=== PATIENT | female | born 1945 | race Caucasian/White ===

== ENCOUNTER 2019-09-13 07:03 | Day surgery (SDC) | payer MEDICARE, BC ==
[2019-09-07 11:41] LABS: BASOPHILS % (AUTO) 0.3 % (0-1); EOSINOPHILS # (AUTO) 0.1 X10'3 (0-0.9); EOSINOPHILS % (AUTO) 0.7 % (0-6); LYMPHOCYTES # (AUTO) 1.8 X10'3 (1.1-4.8); LYMPHOCYTES % (AUTO) 21.4 % (21-51); MEAN CORPUSCULAR HEMOGLOBIN 28.6 PG (27.0-31.0); MEAN CORPUSCULAR VOLUME 86.5 FL (78-98); MEAN PLATELET VOLUME 8.1 FL (7.4-10.4); MONOCYTES # (AUTO) 0.7 X10'3 (0-0.9); MONOCYTES % (AUTO) 8.3 % (2-12); NEUTROPHILS # (AUTO) 5.8 X10'3 (1.8-7.7); NEUTROPHILS % (AUTO) 69.3 % (42-75); PRE OP HEMATOCRIT 35.6 % (35.0-45.0); PRE OP HEMOGLOBIN 11.8 g/dL (12.0-16.0); PRE OP PLATELET COUNT 342 X10'3 (140-440); RED BLOOD COUNT 4.12 X10'6 (4.20-5.60); RED CELL DISTRIBUTION WIDTH 17.9 % (11.5-14.5)
[2019-09-07 11:55] LABS: ALBUMIN 3.8 G/DL (3.4-5.0); ALBUMIN/GLOBULIN RATIO 1.1 (1.1-1.5); ALKALINE PHOSPHATASE 86 IU/L (46-116); BLOOD UREA NITROGEN 15 MG/DL (7-18); CHLORIDE 105 MMOL/L (99-107); CREATININE 0.88 MG/DL (0.40-0.90); PRE OP ALT 20 U/L (30-65); PRE OP ANION GAP 10 (8-16); PRE OP AST 23 U/L (10-37); PRE OP BILIRUB, TOTAL 0.3 MG/DL (0.0-1.0); PRE OP GLUCOSE 100 MG/DL (70-104); PRE OP POTASSIUM 3.9 MMOL/L (3.4-5.1); PRE OP SODIUM 140 MMOL/L (135-145); TOTAL CARBON DIOXIDE 24.7 MMOL/L (24-32); TOTAL PROTEIN 7.2 G/DL (6.4-8.2); eGFR 62 ML/MIN
[2019-09-07 12:01] LABS: PRE OP PROTIME 10.4 SECONDS (9.0-12.0)
[~2019-09-13] VITALS: Ht 160 cm; Wt 63.5 kg
[2019-09-13] VITALS (11 sets, daily range): BP systolic 112–135; BP diastolic 52–76
[~2019-09-13 07:03] MED LIST: ALBU8.5H8 INH; CITA20TA17 PO; FLUT1BLS10 INH; LEVO25TA7 PO; OMEP-50 PO; albuterol 2.5 MG/3 ML nebule NEB ONE; famotidine 20mg tablet PO ONE; ringers solution, lacted 1,000 ML IV SCH
[2019-09-13] MEDS ORDERED: methylPREDNISolone acetate 80mg/ml inj**IM only ONE (07:44)
[2019-09-13] MEDS ORDERED: LIDOcaine 1% W/epiNEPHrine 1:100,000 20ml vial ONE (07:44)
[2019-09-13] MEDS ORDERED: cocaine 4% topical solution 4ml bottle ONE (07:44)
[2019-09-13] MEDS ORDERED: mupirocin 2% ointment 22GM ONE (07:44)
[2019-09-13] MEDS ORDERED: oxymetazoline 15 ML nasal spray NS ONE (07:45)
[2019-09-13] MEDS ORDERED: BUPIVAcaine 0.5% W/EPI /PF 30ml vial ONE (07:45)
[2019-09-13] MEDS: oxymetazoline 15 ML nasal spray NS PRN ×2 (07:46→09:58)
[2019-09-13] MEDS ORDERED: ePHEDrine 50MG/ML INJ. ONE (09:35)
[2019-09-13] MEDS ORDERED: sevoflurane 250ml liquid IH ONE (09:35)
[2019-09-13] MEDS ORDERED: fentaNYL/PF 50MCG/1 ML 2ML syringe ONE (09:39)
[2019-09-13] MEDS ORDERED: meperidine/PF 25mg/ml syringe IV PRN (09:40)
[2019-09-13] MEDS ORDERED: midazolam 2 mg/2 ml injection ONE (09:40)
[2019-09-13] MEDS ORDERED: HYDROmorphone inj. 0.5 MG/0.5 ML DISP.SYRIN IV PRN ×2 (09:40)
[2019-09-13] MEDS ORDERED: acetaminophen 1,000mg/100ml IV 100 ML IV PRN (09:40)
[2019-09-13] MEDS ORDERED: proCHLORperazine 10 MG/2 ml inj IV PRN (09:40)
[2019-09-13] MEDS ORDERED: ondansetron/PF 4mg/2ml inj IV PRN (09:40)
[2019-09-13] MEDS ORDERED: ringers solution, lacted 1,000 ML IV SCH (09:40)
[2019-09-13] MEDS ORDERED: fentaNYL/PF 50MCG/1 ML 2ML syringe IV PRN ×2 (09:40)
[2019-09-13] MEDS ORDERED: LIDOcaine 2% (20mg/ml) 5ml vial ONE (09:55)
[2019-09-13] MEDS ORDERED: propofol inj 20 ML IV ONE (09:55)
[2019-09-13] MEDS ORDERED: ceFAZolin 1000mg inj ONE (09:56)
[2019-09-13] MEDS ORDERED: ondansetron/PF 4mg/2ml inj ONE (09:56)
[2019-09-13] MEDS ORDERED: dexamethasone sod phosphate 4mg/ml inj. ONE (09:56)
--- NOTE | 2019-09-13 10:37 | NUR ---
Received from OR via [facility], accompanied by Anesthesiologist DR ARGUELLO and report given by Anesthesiologist. PT DROWSY, NO S/S OF DISTRESS/DISCOMFORT, STERI-STIP OVER BRIDGE OF NOSE W/SMALL AMT OF BLOODY DRAINAGE. DR STROUD IN TO SEE PT. Addendum: 09/13/19 at 1138 by Saranya Hui RN Amended: Links added.
--- NOTE | 2019-09-13 12:37 | NUR ---
PT ABLE TO AMBULATE TO BATHROOM FOR VOID, STEADY ON FEET, D/C INSTRUCTIONS GIVEN AND GONE OVER W/PT WHO VERBALIZED UNDERSTANDING, PT D/CD TO HOME VIA W/C TO PRIVATE VEHICLE W/O INCIDENT. Addendum: 09/13/19 at 1556 by Saranya Hui RN Amended: Links added.
== END 2019-09-13 12:37 | disposition home or self-care (01) ==
LOC: PAS 07:03
PROVIDERS: ATTEND Otolaryngology
DX: J98.8 Other specified respiratory disorders (principal); M95.0 Acquired deformity of nose; J34.89 Other specified disorders of nose and nasal sinuses; J45.909 Unspecified asthma, uncomplicated; E03.9 Hypothyroidism, unspecified; M19.90 Unspecified osteoarthritis, unspecified site; K21.9 Gastro-esophageal reflux disease without esophagitis; E11.9 Type 2 diabetes mellitus without complications; F32.9 Major depressive disorder, single episode, unspecified; Z79.01 Long term (current) use of anticoagulants; Z79.899 Other long term (current) drug therapy; Z11.59 Encounter for screening for other viral diseases; Z98.890 Other specified postprocedural states; Z90.710 Acquired absence of both cervix and uterus; Z87.891 Personal history of nicotine dependence; Z88.8 Allergy status to other drugs, medicaments and biological substances
CPT/HCPCS: 30400; 36415; 80053; 82948; 85025; 85576; 85610; 85730; 87635; 93005; 94640; 94760; A6402; J0690; J1040; J1100; J2001; J2250; J2405; J2704; J3010; J7120; U0003; 88305; A4618; A6250; A7000